=== PATIENT | male | born 1965 | race Caucasian/White ===

== ENCOUNTER 2018-02-12 10:09 | Emergency (ER) | payer OTHER ==
--- NOTE | 2018-02-12 11:48 | ED Physician Documentation ---
PD HPI LOWER EXT INJURY - Stated complaint Stated Complaint: LT FOOT SWELLING/PAIN - Chief complaint Chief Complaint: Ext Problem - History obtained from History obtained from: Patient, Family - History of Present Illness PD HPI LOW EXT INJURY LOCATION: Left, Foot Type of injury: Blunt / blow Where injury occurred: Home Timing - onset: Last night Timing - duration: Hours Timing - details: Abrupt onset, Still present Improved by: Rest, Ice, Immobilization Worsened by: Moving, Palpating Associated symptoms: Swelling, Discolored. No: Weakness, Numbness Contributing factors: No: Anticoagulated Similar symptoms before: Has not had sx before Recently seen: Not recently seen - Additional information Additional information: 52-year-old male who is visiting here from [facility] he has developed swelling on the dorsum of his left foot. He states that he was walking up to get into the bed last night when he struck it on the edge of the steps. He did not think the injury was anything significant last night. He was able to be up and on his foot this morning with a little bit of pain making breakfast. He has noticed now increased swelling and marked pain. Review of Systems Constitutional: denies: Fever Eyes: denies: Decreased vision Ears: denies: Ear pain Nose: denies: Congestion Throat: denies: Sore throat Respiratory: denies: Dyspnea, Cough GI: denies: Abdominal Pain, Nausea, Vomiting : denies: Dysuria, Frequency Skin: denies: Rash Musculoskeletal: reports: Extremity pain, Extremity swelling, Pain with weight bearing. denies: Neck pain, Back pain Neurologic: denies: Generalized weakness, Focal weakness, Numbness PD PAST MEDICAL HISTORY - Past Medical History Past Medical History: No - Allergies Allergies/Adverse Reactions: Allergies Allergy/AdvReac Type Severity Reaction Status Date / Time No Known Drug Allergies Allergy Verified 02/12/18 10:20 - Social History Does the pt smoke?: No Smoking Status: Never smoker PD ED PE NORMAL - Vitals Vital signs reviewed: Yes (marked hypertension ) - General General: Alert and oriented X 3, No acute distress, Well developed/nourished - HEENT HEENT: Atraumatic, PERRL, EOMI - Respiratory Respiratory: No respiratory distress - Derm Derm: Normal color, Warm and dry, No rash - Extremities Extremities: Other (There is marked swelling and ecchymosis to the dorsum of the left foot. There is discoloration to suggest subcutaneous bleeding and there is no skin erythema to suggest infection. distal n/v intact. 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, No motor deficit, No sensory deficit, Normal speech Eye Opening: Spontaneous Motor: Obeys Commands Verbal: Oriented GCS Score: 15 - Psych Psych: Normal mood, Normal affect Results - Vitals Vitals: Vital Signs - 24 hr 02/12/18 02/12/18 10:12 13:18 Temperature 36.7 C Heart Rate 67 58 L Respiratory 18 19 Rate Blood Pressure 200/111 H 178/103 H O2 Saturation 100 98 Oxygen O2 Source Room air - Rads (name of study) foot Radiology: Prelim report reviewed (Impression: Soft tissue swelling over the dorsum of the foot without underlying fracture or dislocation.), EMP read indepedently, See rad report PD MEDICAL DECISION MAKING - ED course Complexity details: reviewed results, re-evaluated patient, considered differential, d/w patient, d/w family ED course: 52-year-old male with a contusion to the dorsum of the foot has marked swelling and subcutaneous bleeding and no evidence of fracture. He is placed into a posterior splint and onto crutches. He has elevated blood pressure and he is given lisinopril 10mg PO. - Sepsis Event Vital Signs: Vital Signs - 24 hr 02/12/18 02/12/18 10:12 13:18 Temperature 36.7 C Heart Rate 67 58 L Respiratory 18 19 Rate Blood Pressure 200/111 H 178/103 H O2 Saturation 100 98 Oxygen O2 Source Room air Departure - Departure Disposition: 01 Home, Self Care Clinical Impression: Contusion of left foot Qualifiers: Encounter type: initial encounter Qualified Code(s): S90.32XA - Contusion of left foot, initial encounter Condition: Stable Instructions: ED Contusion Foot Follow-Up: Your, doctor [Other]
--- NOTE | 2018-02-12 12:51 | XRAY Report ---
Reason: swelling to the dorsum of the foot. Procedure Date: 02/12/2018 Accession Number: [id number] / [id number] Procedure: XR - Foot 3 View LT CPT Code: FULL RESULT: EXAM: LEFT FOOT RADIOGRAPHY EXAM DATE: 02/12/2018 12:33 PM. CLINICAL HISTORY: Swelling to the dorsum of the foot. COMPARISON: None. TECHNIQUE: 3 views. FINDINGS: Bones: Normal. No fractures or bone lesions. Joints: Normal. No subluxations. Soft Tissues: Soft tissue swelling over the dorsum of the foot, overlying the metacarpals. IMPRESSION: Soft tissue swelling over the dorsum of the foot without underlying fracture or dislocation. [facility]
[2018-02-12 13:20] VITALS: BP 178/103
[2018-02-12] MEDS ORDERED: LISINOPRIL 5 MG TABLET PO STA ×2 (13:22→13:42)
== END 2018-02-12 13:52 | disposition home or self-care (01) ==
LOC: ED 10:09
DX: S90.32XA Contusion of left foot, initial encounter (principal); W22.09XA Striking against other stationary object, initial encounter; Y92.009 Unspecified place in unspecified non-institutional (private) residence as the place of occurrence of the external cause
CPT/HCPCS: 73630; 99283; A9270